=== PATIENT | male | born 1965 | race Caucasian/White ===

== ENCOUNTER 2021-06-16 12:32 | Emergency (ER) | payer BC ==
[2021-06-16] MEDS ORDERED: Sodium Chloride 0.9% 10 ML Syringe FLUSH PRN (13:49)
--- NOTE | 2021-06-16 13:51 | EDM.PDOC ---
ED HPI GENERAL MEDICAL PROBLEM - General Chief Complaint: Respiratory Problem Stated Complaint: CANT EAT/SLEEP/DIZZY/CHILLS/X 2 WEEKS Time Seen by Provider: 06/16/21 13:41 Source of Information: Reports: Patient, RN Notes Reviewed History Limitations: Reports: No Limitations - History of Present Illness INITIAL COMMENTS - FREE TEXT/NARRATIVE: Patient is a 56-year-old male who presents to the ER for evaluation of a multitude of symptoms. Patient notes for the last 2 weeks or so, he has been having issues with fevers, chills, nausea/vomiting/diarrhea. States that he does not have much of an appetite, when he does eat, go straight through him. He was able to keep some pudding down earlier this morning. He is not sure what his temperatures have been at home, but he notes that he has felt feverish. States that he is only at home with his , so he is not sure if he has been around anyone that is been sick that he is aware of. Patient has not previously had COVID-19, nor did he get the vaccinations. Primary care provider is Lesly Friedman. Patient states he is not taking any regular medications. Generalized Pain Score (Numeric/FACES): 5 - Related Data Allergies Allergy/AdvReac Type Severity Reaction Status Date / Time No Known Allergies Allergy Verified 06/16/21 13:17 Home Meds: Home Meds Ondansetron [Zofran ODT] 4 mg PO Q8H PRN #15 tab.dis 06/16/21 [Rx] Past Medical History - Past Health History Medical/Surgical History: Denies Medical/Surgical History Social & Family History - Tobacco Use Tobacco Use Status *Q: Current Every Day Tobacco User Years of Tobacco use: 5 Packs/Tins Daily: 0.5 - Caffeine Use Caffeine Use: Reports: Coffee, Soda - Recreational Drug Use Recreational Drug Use: No ED ROS GENERAL - Review of Systems Review Of Systems: Comprehensive ROS is negative, except as noted in HPI. ED EXAM, GENERAL - Physical Exam Exam: See Below Exam Limited By: No Limitations General Appearance: Alert, WD/WN, No Apparent Distress Respiratory/Chest: No Respiratory Distress, Lungs Clear, Normal Breath Sounds, No Accessory Muscle Use, Chest Non-Tender Cardiovascular: Normal Peripheral Pulses, Regular Rate, Rhythm, No Edema Peripheral Pulses: 2+: Radial (L), Radial (R) Extremities: Normal Inspection, Normal Capillary Refill Neurological: Alert, Oriented, Normal Cognition, No Motor/Sensory Deficits Psychiatric: Normal Affect, Normal Mood Skin Exam: Warm, Dry, Intact, Normal Color, No Rash Course - Vital Signs Last Recorded V/S: Last Vital Signs Temp 99.0 F 06/16/21 13:15 Pulse 79 06/16/21 13:15 Resp 18 06/16/21 13:15 BP 137/75 06/16/21 13:15 Pulse Ox 94 L 06/16/21 13:15 - Orders/Labs/Meds Orders: Active Orders 24 hr Category Date Time Status Peripheral IV Care [RC] . DIRECTED Care 06/16/21 13:49 Ordered Chest 1V Frontal [CR] Stat Exams 06/16/21 13:49 Ordered CULTURE URINE [MREF] Urgent Lab 06/16/21 14:50 Ordered Sodium Chloride 0.9% [Saline Flush] Med 06/16/21 13:49 Ordered 10 ml FLUSH ASDIRECTED PRN Peripheral IV Insertion Adult [OM.PC] Routine Oth 06/16/21 13:49 Ordered Medication Orders Sodium Chloride (Sodium Chloride 0.9% 10 Ml Syringe) 10 ml FLUSH ASDIRECTED PRN PRN Reason: Keep Vein Open Labs: Laboratory Tests 06/16/21 06/16/21 06/16/21 Range/Units 13:25 14:14 14:14 WBC 6.13 (4.23-9.07) K/mm3 RBC 4.76 (4.63-6.08) M/mm3 Hgb 14.6 (13.7-17.5) gm/dl Hct 42.6 (40.1-51.0) % MCV 89.5 (79.0-92.2) fl MCH 30.7 (25.7-32.2) pg MCHC 34.3 (32.2-35.5) g/dl RDW Std Deviation 44.2 H (35.1-43.9) fL Plt Count 244 (163-337) K/mm3 MPV 9.5 (9.4-12.3) fl Neut % (Auto) 63.6 (34.0-67.9) % Lymph % (Auto) 23.2 (21.8-53.1) % [place] % (Auto) 11.9 (5.3-12.2) % Eos % (Auto) 0 L (0.8-7.0) Baso % (Auto) 0.5 (0.1-1.2) % Neut # (Auto) 3.90 (1.78-5.38) K/mm3 Lymph # (Auto) 1.42 (1.32-3.57) K/mm3 [place] # (Auto) 0.73 (0.30-0.82) K/mm3 Eos # (Auto) 0.00 L (0.04-0.54) K/mm3 Baso # (Auto) 0.03 (0.01-0.08) K/mm3 Manual Slide Review Abnormal smear Sodium 139 (136-145) mEq/L Potassium 3.6 (3.5-5.1) mEq/L Chloride 101 (98-107) mEq/L Carbon Dioxide 31 (21-32) mEq/L Anion Gap 10.6 (5-15) BUN 14 (7-18) mg/dL Creatinine 1.0 (0.7-1.3) mg/dL Est Cr Clr Drug Dosing 77.90 mL/min Estimated GFR (MDRD) > 60 (>60) mL/min BUN/Creatinine Ratio 14.0 (14-18) Glucose 112 H (70-99) mg/dL Calcium 7.7 L (8.5-10.1) mg/dL Total Bilirubin 0.7 (0.2-1.0) mg/dL AST 73 H (15-37) U/L ALT 59 (16-63) U/L Alkaline Phosphatase 95 (46-116) U/L C-Reactive Protein 6.2 H* (<1.0) mg/dL Total Protein 6.4 (6.4-8.2) g/dl Albumin 3.0 L (3.4-5.0) g/dl Globulin 3.4 gm/dL Albumin/Globulin Ratio 0.9 L (1-2) Urine Color (Yellow) Urine Appearance (Clear) Urine pH (5.0-8.0) Ur Specific [place] (1.005-1.030) Urine Protein (Negative) Urine Glucose (UA) (Negative) Urine Ketones (Negative) Urine Occult Blood (Negative) Urine Nitrite (Negative) Urine Bilirubin (Negative) Urine Urobilinogen (0.2-1.0) Ur Leukocyte Esterase (Negative) Urine RBC (0-5) /hpf Urine WBC (0-5) /hpf Ur Squamous Epith Cells (0-5) /hpf Amorphous Sediment (NOT SEEN) /hpf Urine Bacteria (FEW) /hpf Urine Mucus (FEW) /hpf SARS-CoV-2 RNA (SUSANNE) Positive H (NEGATIVE) 06/16/21 Range/Units 14:25 WBC (4.23-9.07) K/mm3 RBC (4.63-6.08) M/mm3 Hgb (13.7-17.5) gm/dl Hct (40.1-51.0) % MCV (79.0-92.2) fl MCH (25.7-32.2) pg MCHC (32.2-35.5) g/dl RDW Std Deviation (35.1-43.9) fL Plt Count (163-337) K/mm3 MPV (9.4-12.3) fl Neut % (Auto) (34.0-67.9) % Lymph % (Auto) (21.8-53.1) % [place] % (Auto) (5.3-12.2) % Eos % (Auto) (0.8-7.0) Baso % (Auto) (0.1-1.2) % Neut # (Auto) (1.78-5.38) K/mm3 Lymph # (Auto) (1.32-3.57) K/mm3 [place] # (Auto) (0.30-0.82) K/mm3 Eos # (Auto) (0.04-0.54) K/mm3 Baso # (Auto) (0.01-0.08) K/mm3 Manual Slide Review Sodium (136-145) mEq/L Potassium (3.5-5.1) mEq/L Chloride (98-107) mEq/L Carbon Dioxide (21-32) mEq/L Anion Gap (5-15) BUN (7-18) mg/dL Creatinine (0.7-1.3) mg/dL Est Cr Clr Drug Dosing mL/min Estimated GFR (MDRD) (>60) mL/min BUN/Creatinine Ratio (14-18) Glucose (70-99) mg/dL Calcium (8.5-10.1) mg/dL Total Bilirubin (0.2-1.0) mg/dL AST (15-37) U/L ALT (16-63) U/L Alkaline Phosphatase (46-116) U/L C-Reactive Protein (<1.0) mg/dL Total Protein (6.4-8.2) g/dl Albumin (3.4-5.0) g/dl Globulin gm/dL Albumin/Globulin Ratio (1-2) Urine Color Yellow (Yellow) Urine Appearance Clear (Clear) Urine pH 6.5 (5.0-8.0) Ur Specific [place] 1.020 (1.005-1.030) Urine Protein Trace H (Negative) Urine Glucose (UA) Negative (Negative) Urine Ketones Trace H (Negative) Urine Occult Blood Negative (Negative) Urine Nitrite Negative (Negative) Urine Bilirubin Negative (Negative) Urine Urobilinogen 0.2 (0.2-1.0) Ur Leukocyte Esterase Negative (Negative) Urine RBC 0-5 (0-5) /hpf Urine WBC 0-5 (0-5) /hpf Ur Squamous Epith Cells Not seen (0-5) /hpf Amorphous Sediment Few H (NOT SEEN) /hpf Urine Bacteria Moderate H (FEW) /hpf Urine Mucus Few (FEW) /hpf SARS-CoV-2 RNA (SUSANNE) (NEGATIVE) Meds: Medications Generic Name Dose Route Start Last Admin Trade Name Freq PRN Reason Stop Dose Admin Sodium Chloride 10 ml 06/16/21 13:49 Sodium Chloride 0.9% 10 Ml Syringe FLUSH ASDIRECTED PRN Keep Vein Open - Re-Assessments/Exams Free Text/Narrative Re-Assessment/Exam: 06/16/21 13:53 Patient presents to the ER for his multitude of symptoms, Covid swab was taken at time of triage, we will go ahead and get a baseline x-ray, baseline labs, urinalysis for initial evaluation and management. 06/16/21 14:13 Labs are still pending at this time however chest x-ray has been performed, there does appear to be some patchy infiltrates over the right lung periphery. Official radiology read is still pending. Patient is not morbidly obese, does not appear to be overlying shadow. 06/16/21 14:20 Basic labs are still pending, but the COVID-19 screen did come back positive for today's purposes. At this time the patient has been symptomatic for roughly 2 weeks, and does not meet criteria for outpatient monoclonal antibody therapy, once labs have resulted for the most part, we will try to get the patient home with general recommendations, have him stick to more of a bland or clear liquid diet, get him some Zofran for the nausea, and have him maybe try some loperamide for his ongoing diarrhea. 06/16/21 14:52 The patient's laboratory evaluation is fairly unremarkable, CBC is unremarkable, CMP is unremarkable, CRP is elevated at 6.2. Urinalysis demonstrates no obvious sign of infection, there is no leukocyte esterase present, no nitrites present, 0-5 white blood cells, no squamous epithelial cells, but a moderate amount of bacteria noted. A urine culture will be sent for confirmation and or further investigation. However he is not having any dysuria or other urinary discomfort that would make me suspicious for anything worse going on. Departure - Departure Time of Disposition: 14:55 Disposition: Home, Self-Care 01 Condition: Good Clinical Impression: COVID-19 - Discharge Information *PRESCRIPTION DRUG MONITORING PROGRAM REVIEWED*: No *COPY OF PRESCRIPTION DRUG MONITORING REPORT IN PATIENT WILMER: No Prescriptions: Ondansetron [Zofran ODT] 4 mg PO Q8H PRN #15 tab.dis PRN Reason: Nausea Instructions: COVID-19 Frequently Asked Questions, 10 Things You Can Do to Manage Your COVID-19 Symptoms at Home - [facility] (04/26/2020) Referrals: Lesly Friedman NP [Primary Care Provider] - Forms: ED Department Discharge Additional Instructions: You were seen in the ER today for ongoing and/or worsening respiratory symptoms. COVID-19 screen did come back positive for today's purposes. Since you have been having symptoms for roughly 2 weeks, there should be no need to quarantine however please follow direction from the [facility] for ongoing management of this. The typical timeframe for quarantine is 10 days from beginning of symptom onset. Your chest x-ray showed some minimal signs of viral pneumonia at this time; consistent with COVID-19. Your oxygen levels were great at 93-94% on room air. Please try to increase your oral fluid intake, and eat multiple small meals throughout the day, to keep yourself healthy. You need to keep yourself nourished in order to fight off this disease. You can try a liquid diet like g atorade/powerade as well to get your electrolytes. You may take 500 mg Tylenol every hours 6 hours for pain/fever relief. Do not exceed 4000 mg Tylenol in a 24-hour time span. However, running a fever is your body's natural response to illness, and it allows the body to develop antibodies to disease, we are recommending trying to limit the use of Tylenol as much as possible to allow your body's natural immune response. You were given a monitor for your oxygen levels at home, you should place the monitor on your finger, and sit in a calm, quiet position for a few minutes and then record the number that is on the screen. If this consistently below 90% on room air without movement, this would be cause for concern to come back to the hospital for further management of your COVID-19 disease. For ongoing GI management, we will give you some tablets of Zofran for nausea, please use 1 tablet dissolvable under your tongue every 8 hours as needed for ongoing nausea management. This medication was electronically sent to the [place] [facility] [employer] [facility]. You should try some [id number] loperamide for the diarrhea purposes, please take as directed on the back of the box. Sepsis Event Note (ED) - Focused Exam Vital Signs: Vital Signs Temp Pulse Resp BP Pulse Ox 06/16/21 13:15 99.0 F 79 18 137/75 94 L - My Orders Last 24 Hours: My Active Orders 06/16/21 13:49 Peripheral IV Care [RC] . DIRECTED Chest 1V Frontal [CR] Stat Sodium Chloride 0.9% [Saline Flush] 10 ml FLUSH ASDIRECTED PRN Peripheral IV Insertion Adult [OM.PC] Routine 06/16/21 14:50 CULTURE URINE [MREF] Urgent - Assessment/Plan Last 24 Hours: My Active Orders 06/16/21 13:49 Peripheral IV Care [RC] . DIRECTED Chest 1V Frontal [CR] Stat Sodium Chloride 0.9% [Saline Flush] 10 ml FLUSH ASDIRECTED PRN Peripheral IV Insertion Adult [OM.PC] Routine 06/16/21 14:50 CULTURE URINE [MREF] Urgent
--- NOTE | 2021-06-16 16:02 | CR ---
Chest: Frontal view of the chest was obtained. Comparison: No prior chest imaging is available. Patchy areas of increased density are seen peripherally within both lungs, worse on the right side. Findings are compatible with COVID pneumonia. Heart size and mediastinum are within normal limits. No acute osseous abnormality is appreciated. Impression: 1. COVID pneumonia as described above. Diagnostic code #3
== END 2021-06-16 15:28 | disposition home or self-care (01) ==
LOC: JD.ED 12:32
DX: U07.1 COVID-19 (principal); Z72.0 Tobacco use
CPT/HCPCS: 36415; 71045; 71045-26; 80053; 81001; 85025; 86140; 87086; 99283; 99284-25; U0002

== ENCOUNTER 2021-06-19 17:41 | Inpatient (IN) | payer BC ==
--- NOTE | 2021-06-19 18:41 | EDM.PDOC ---
ED HPI GENERAL MEDICAL PROBLEM - General Chief Complaint: General Stated Complaint: COVID SOB Time Seen by Provider: 06/19/21 17:55 Source of Information: Reports: Patient History Limitations: Reports: No Limitations - History of Present Illness INITIAL COMMENTS - FREE TEXT/NARRATIVE: 56-year-old male presents the emergency department with complaints of Covid type symptoms. Patient states he developed generalized body aches, subjective fever, chills, nausea, diarrhea and shortness of breath approximately 2 weeks ago. He has not had much in the way of an appetite however he has been trying to drink plenty of fluids. He denies any urinary symptoms. He states he was tested for Covid 3 days ago and this was positive. States he went to [facility] today and they sent him over here for monoclonal antibody treatment. Patient denies any significant past medical history. He does not take any prescription medications. He does not smoke, he does not drink. States his primary care provider is Maryam Friedman. Treatments [employer]: Reports: Acetaminophen Generalized Pain Score (Numeric/FACES): 5 - Related Data Allergies Allergy/AdvReac Type Severity Reaction Status Date / Time No Known Allergies Allergy Verified 06/19/21 17:56 Home Meds: Home Meds Ondansetron [Zofran ODT] 4 mg PO Q8H PRN #15 tab.dis 06/16/21 [Rx] Past Medical History - Past Health History Medical/Surgical History: Denies Medical/Surgical History HEENT History: Reports: None Cardiovascular History: Reports: None Respiratory History: Reports: None Gastrointestinal History: Reports: None Genitourinary History: Reports: None Musculoskeletal History: Reports: None Neurological History: Reports: None Psychiatric History: Reports: None Endocrine/Metabolic History: Reports: None Hematologic History: Reports: None Immunologic History: Reports: None Oncologic (Cancer) History: Reports: None Dermatologic History: Reports: None - Infectious Disease History Infectious Disease History: Reports: Chicken Pox, Measles, Mumps, Novel Coronavi khalida - Past Surgical History HEENT Surgical History: Reports: Oral Surgery Social & Family History - Family History Family Medical History: No Pertinent Family History - Tobacco Use Tobacco Use Status *Q: Former Tobacco User Used Tobacco, but Quit: Yes Month/Year Tobacco Last Used: 10/2004 - Caffeine Use Caffeine Use: Reports: Coffee - Recreational Drug Use Recreational Drug Use: No ED ROS GENERAL - Review of Systems Review Of Systems: Comprehensive ROS is negative, except as noted in HPI. ED EXAM, GENERAL - Physical Exam Exam: See Below Exam Limited By: No Limitations General Appearance: Alert, WD/WN, No Apparent Distress Ears: Normal External Exam, Hearing Grossly Normal Nose: Normal Inspection Throat/Mouth: Normal Inspection, Normal Lips, Normal Voice, No Airway Compromise Head: Atraumatic Neck: Normal Inspection, Supple Respiratory/Chest: No Respiratory Distress, No Accessory Muscle Use, Chest Non- Tender, Crackles (Right middle and lower lobe). No: Lungs Clear, Normal Breath Sounds Cardiovascular: Normal Peripheral Pulses, Regular Rate, Rhythm, No Edema, No Murmur Peripheral Pulses: 2+: Radial (L), Radial (R) GI/Abdominal: Normal Bowel Sounds, Soft, Non-Tender, No Distention (Male) Exam: Deferred Rectal (Males) Exam: Deferred Back Exam: Normal Inspection Extremities: Normal Inspection Neurological: Alert, Oriented, Normal Cognition Psychiatric: Normal Affect, Normal Mood Skin Exam: Warm, Dry, Intact, Normal Color, No Rash Lymphatic: No Adenopathy #1 Interpretation EKG Date: 06/19/21 Time: 18:43 Rhythm: NSR Rate (Beats/Min): 65 [place]: Normal P-Wave: Present QRS: Normal ST-T: Normal QT: Normal Comparison: NA - No Prior EKG EKG Interpretation Comments: Per Dr. Hanley interpretation: Sinus rhythm at 65 bpm; borderline T abnormalities, inferior leads Course - Vital Signs Text/Narrative:: As stated above, the patient is Covid positive and presents with Covid symptoms. Was directed to come to the ER from [facility] for monoclonal antibody treatment however at this time upon initial assessment, patient does not qualify for this. O2 saturations are 94% on room air. Patient does have crackles noted to the right middle and lower lobe. I have ordered labs to include a CBC, CMP, magnesium, C-reactive protein, D-dimer, PT/INR, PTT, troponin, ferritin, LDH, chest x-ray and an EKG. Last Recorded V/S: Last Vital Signs Temp 98.0 F 06/19/21 18:01 Pulse 73 06/19/21 18:01 Resp 18 06/19/21 18:01 BP 125/88 06/19/21 18:01 Pulse Ox 90 L 06/19/21 18:01 - Orders/Labs/Meds Orders: Active Orders 24 hr Category Date Time Status UA RFX NAT AND CULT IF INDIC [URIN] Stat Lab 06/19/21 18:23 Ordered Azithromycin [Zithromax] 500 mg Med 06/19/21 20:00 Active Sodium Chloride 0.9% [Normal Saline (AdvBag)] 250 ml IV Q24H cefTRIAXone [Rocephin] 2 gm Med 06/19/21 20:00 Active Sodium Chloride 0.9% [Normal Saline] 100 ml IV Q24H Medication Orders Azithromycin 500 mg/ Sodium (Chloride) 250 mls @ 250 mls/hr IV Q24H JAYE Ceftriaxone Sodium 2 gm/ (Sodium Chloride) 100 mls @ 200 mls/hr IV Q24H JAYE Last Admin: 06/19/21 20:28 Dose: 200 mls/hr Documented by: [email or web address] Labs: Laboratory Tests 06/19/21 06/19/21 06/19/21 Range/Units 18:36 18:36 18:36 WBC 7.78 (4.23-9.07) K/mm3 RBC 4.79 (4.63-6.08) M/mm3 Hgb 14.6 (13.7-17.5) gm/dl Hct 43.1 (40.1-51.0) % MCV 90.0 (79.0-92.2) fl MCH 30.5 (25.7-32.2) pg MCHC 33.9 (32.2-35.5) g/dl RDW Std Deviation 43.6 (35.1-43.9) fL Plt Count 412 H D (163-337) K/mm3 MPV 9.2 L (9.4-12.3) fl Neut % (Auto) 56.8 (34.0-67.9) % Lymph % (Auto) 25.8 (21.8-53.1) % Person % (Auto) 13.1 H (5.3-12.2) % Eos % (Auto) 2.1 (0.8-7.0) Baso % (Auto) 1.0 (0.1-1.2) % Neut # (Auto) 4.42 (1.78-5.38) K/mm3 Lymph # (Auto) 2.01 (1.32-3.57) K/mm3 Person # (Auto) 1.02 H (0.30-0.82) K/mm3 Eos # (Auto) 0.16 (0.04-0.54) K/mm3 Baso # (Auto) 0.08 (0.01-0.08) K/mm3 Manual Slide Review PT 12.3 H (9.7-12.0) SECONDS INR 1.15 APTT 31.3 (21.7-31.4) SECONDS D-Dimer, Quantitative 0.43 (0.19-0.50) mg/L Sodium 142 (136-145) mEq/L Potassium 3.4 L (3.5-5.1) mEq/L Chloride 104 (98-107) mEq/L Carbon Dioxide 31 (21-32) mEq/L Anion Gap 10.4 (5-15) BUN 10 (7-18) mg/dL Creatinine 1.1 (0.7-1.3) mg/dL Est Cr Clr Drug Dosing 70.82 mL/min Estimated GFR (MDRD) > 60 (>60) mL/min BUN/Creatinine Ratio 9.1 L (14-18) Glucose 94 (70-99) mg/dL Calcium 8.3 L (8.5-10.1) mg/dL Magnesium 2.4 (1.8-2.4) mg/dL Ferritin (26-388) ng/ml Total Bilirubin 0.6 (0.2-1.0) mg/dL AST 83 H (15-37) U/L ALT 87 H (16-63) U/L Alkaline Phosphatase 127 H (46-116) U/L Lactate Dehydrogenase 462 H (85-227) U/L Troponin I < 0.017 (0.00-0.056) ng/mL C-Reactive Protein 2.8 H* (<1.0) mg/dL Total Protein 6.7 (6.4-8.2) g/dl Albumin 3.1 L (3.4-5.0) g/dl Globulin 3.6 gm/dL Albumin/Globulin Ratio 0.9 L (1-2) 06/19/ Range/Units 18:36 WBC (4.23-9.07) K/mm3 RBC (4.63-6.08) M/mm3 Hgb (13.7-17.5) gm/dl Hct (40.1-51.0) % MCV (79.0-92.2) fl MCH (25.7-32.2) pg MCHC (32.2-35.5) g/dl RDW Std Deviation (35.1-43.9) fL Plt Count (163-337) K/mm3 MPV (9.4-12.3) fl Neut % (Auto) (34.0-67.9) % Lymph % (Auto) (21.8-53.1) % Person % (Auto) (5.3-12.2) % Eos % (Auto) (0.8-7.0) Baso % (Auto) (0.1-1.2) % Neut # (Auto) (1.78-5.38) K/mm3 Lymph # (Auto) (1.32-3.57) K/mm3 Person # (Auto) (0.30-0.82) K/mm3 Eos # (Auto) (0.04-0.54) K/mm3 Baso # (Auto) (0.01-0.08) K/mm3 Manual Slide Review PT (9.7-12.0) SECONDS INR APTT (21.7-31.4) SECONDS D-Dimer, Quantitative (0.19-0.50) mg/L Sodium (136-145) mEq/L Potassium (3.5-5.1) mEq/L Chloride (98-107) mEq/L Carbon Dioxide (21-32) mEq/L Anion Gap (5-15) BUN (7-18) mg/dL Creatinine (0.7-1.3) mg/dL Est Cr Clr Drug Dosing mL/min Estimated GFR (MDRD) (>60) mL/min BUN/Creatinine Ratio (14-18) Glucose (70-99) mg/dL Calcium (8.5-10.1) mg/dL Magnesium (1.8-2.4) mg/dL Ferritin 3068 H (26-388) ng/ml Total Bilirubin (0.2-1.0) mg/dL AST (15-37) U/L ALT (16-63) U/L Alkaline Phosphatase (46-116) U/L Lactate Dehydrogenase (85-227) U/L Troponin I (0.00-0.056) ng/mL C-Reactive Protein (<1.0) mg/dL Total Protein (6.4-8.2) g/dl Albumin (3.4-5.0) g/dl Globulin gm/dL Albumin/Globulin Ratio (1-2) Meds: Medications Generic Name Dose Route Start Last Admin Trade Name Freq PRN Reason Stop Dose Admin Azithromycin 500 mg/ Sodium 250 mls @ 250 mls/hr 06/19/21 20:00 Chloride IV Q24H JAYE Ceftriaxone Sodium 2 gm/ 100 mls @ 200 mls/hr 06/19/21 20:00 06/19/21 20:28 Sodium Chloride IV 200 mls/hr Q24H JAYE Administration Discontinued Medications Generic Name Dose Route Start Last Admin Trade Name Freq PRN Reason Stop Dose Admin Dexamethasone 6 mg 06/19/21 19:49 06/19/21 20:28 Dexamethasone 4 Mg Tab PO 06/19/21 19:50 6 mg NOW STA Administration Remdesivir 200 mg/ Sodium 250 mls @ 250 mls/hr 06/19/21 19:47 Chloride IV 06/19/21 20:46 ONETIME ONE - Re-Assessments/Exams Free Text/Narrative Re-Assessment/Exam: 06/19/21 19:00 Nursing staff notifies me the patient's O2 sats dropped down to 74% on room air. They state they put him on oxygen at 4 L per nasal cannula and sats are currently at 96%. 06/19/21 19:24 Chest xray reveals areas of infiltrates noted to the right middle and lower lobes as well as the left lower lobe. 06/19/21 19:30 Feel this patient does need to be admitted to the hospital so I have phoned Dr. Bolton, the hospitalist and he has agreed to admit the patient. He is requesting that I start the patient on remdesivir, Rocephin, Zithromax and dexamethasone. I will write bridge orders for this patient. 06/19/21 19:47 Hematology reveals a WBC of 7.78, hemoglobin 14.6, hematocrit 43.1, platelet count 412 Coagulation reveals a pro time of 12.3, INR 1.15, PTT 31.3, D-dimer is 0.43 Chemistry reveals a sodium of 142, potassium 3.4, chloride 104, carbon dioxide 31, anion gap 10.4, BUN 10, creatinine 1.1, glucose 94, calcium 8.3, magnesium 2.4, ferritin 3068, total bilirubin 0.6, AST 83, ALT 87, alk phos 127, LDH 462, troponin less than 0.017, C-reactive protein 2.8, albumin 3.1 06/19/21 19:53 Radiologist impression frontal view of the chest: 1. Worsening increased density within both sides of the chest. Findings most likely due to worsening Covid pneumonia. Departure - Departure Time of Disposition: 21:13 Disposition: Admitted As Inpatient 66 Condition: Good Clinical Impression: Hypoxia, Pneumonia due to COVID-19 virus - Discharge Information Sepsis Event Note (ED) - Evaluation Sepsis Screening Result: No Definite Risk - Focused Exam Vital Signs: Vital Signs Temp Pulse Resp BP Pulse Ox 06/19/21 18:01 98.0 F 73 18 125/88 90 L 06/19/21 17:59 98.0 F 73 18 142/85 H 94 L - My Orders Last 24 Hours: My Active Orders 06/19/21 18:23 UA RFX NAT AND CULT IF INDIC [URIN] Stat 06/19/21 20:00 Azithromycin [Zithromax] 500 mg Sodium Chloride 0.9% [Normal Saline (AdvBag)] 250 ml IV Q24H cefTRIAXone [Rocephin] 2 gm Sodium Chloride 0.9% [Normal Saline] 100 ml IV Q24H - Assessment/Plan Last 24 Hours: My Active Orders 06/19/21 18:23 UA RFX NAT AND CULT IF INDIC [URIN] Stat 06/19/21 20:00 Azithromycin [Zithromax] 500 mg Sodium Chloride 0.9% [Normal Saline (AdvBag)] 250 ml IV Q24H cefTRIAXone [Rocephin] 2 gm Sodium Chloride 0.9% [Normal Saline] 100 ml IV Q24H
--- NOTE | 2021-06-19 19:43 | CR ---
Chest: Frontal view of the chest was obtained. Comparison: Prior chest x-ray of 06/16/21. Increasing density is seen within the left upper and left lower lung from prior chest x-ray. Slight increasing density is also noted within the right lung from prior study. Heart size and mediastinum are within normal limits. No discrete osseous abnormality is appreciated. Impression: 1. Worsening increased density within both sides of the chest. Findings most likely due to worsening COVID pneumonia. Diagnostic code #3
[2021-06-19] MEDS ORDERED: REMDESIVIR 200 MG in Sodium Chloride 0.9% 250 ML IV ONE ×2 (19:47→23:30)
[2021-06-19] MEDS ORDERED: Dexamethasone 4 MG Tab PO STA (19:49)
[2021-06-19] MEDS ORDERED: Azithromycin 500 MG in Sodium Chloride 0.9% 250 ML IV SCH (20:00)
[2021-06-19] MEDS: cefTRIAXone 2 GM in Sodium Chloride 0.9% 100 ML IV SCH (20:28)
[2021-06-20] MEDS: Azithromycin 500 MG in Sodium Chloride 0.9% 250 ML IV SCH ×2 (00:05→23:28)
--- NOTE | 2021-06-20 06:48 | PCM.HP.2 ---
H&P History of Present Illness - General Date of Service: 06/20/21 Admit Problem/Dx: Admission Diagnosis/Problem Admission Diagnosis/Problem Hypoxia, COVID-19 Source of Information: Patient History Limitations: Reports: No Limitations - History of Present Illness Initial Comments - Free Text/Narative: The patient is a 56-year-old gentleman who had presented to the emergency department on June 19, 2021 after having been found to be positive for COVID- 19. The patient was admitted secondary to hypoxia. The patient had been having some shortness of breath. The patient also had been in the emergency department on June 16, 2021 where he had been tested positive for COVID-19. The patient does not normally seek health care. The patient reports that he started feeling sick about 2 weeks ago and had been treating himself at home with flu medication that he had [id number]. The patient has had a cough associated with this process as well as some nausea and diarrhea. The patient says that he has not had any direct fever or chills however he has felt hot and sweaty. The patient has had no specific aggravating or relieving factors. The patient has been t rying to wait out the symptoms. He has been healthy otherwise. The patient does not take any medications on a regular basis. No tobacco use. He is exposed to secondhand smoke. Onset of Symptoms: Reports: Gradual Duration of Symptoms: Reports: Week(s):, Constant Location: Reports: Chest Severity: Mild Improves with: Reports: None Worsens with: Reports: None Context: Denies: Sick Contact Associated Symptoms: Reports: Cough, Fever/Chills Generalized Pain Score (Numeric/FACES): 5 - Related Data Allergies/Adverse Reactions: Allergies Allergy/AdvReac Type Severity Reaction Status Date / Time No Known Allergies Allergy Verified 06/19/21 17:56 Home Medications: Home Meds Ondansetron [Zofran ODT] 4 mg PO Q8H PRN #15 tab.dis 06/16/21 [Rx] Past Medical History - Past Health History Medical/Surgical History: Denies Medical/Surgical History HEENT History: Reports: None Cardiovascular History: Reports: None Respiratory History: Reports: None Gastrointestinal History: Reports: None Genitourinary History: Reports: None Musculoskeletal History: Reports: None Neurological History: Reports: None Psychiatric History: Reports: None Endocrine/Metabolic History: Reports: None Hematologic History: Reports: None Immunologic History: Reports: None Oncologic (Cancer) History: Reports: None Dermatologic History: Reports: None - Infectious Disease History Infectious Disease History: Reports: Chicken Pox, Measles, Mumps, Novel Coronavirus - Past Surgical History HEENT Surgical History: Reports: Oral Surgery Social & Family History - Family History Family Medical History: No Pertinent Family History - Tobacco Use Tobacco Use Status *Q: Former Tobacco User Used Tobacco, but Quit: Yes Month/Year Tobacco Last Used: 2003 Second Hand Smoke Exposure: Yes - Caffeine Use Caffeine Use: Reports: Coffee, Soda - Alcohol Use Alcohol Use History: No - Recreational Drug Use Recreational Drug Use: No - Living Situation & Occupation Living situation: Reports: , with Spouse Occupation: Employed H&P Review of Systems - Review of Systems: Review Of Systems: See Below General: Reports: Fever, Chills, Fatigue HEENT: Reports: No Symptoms Pulmonary: Reports: Shortness of Breath, Cough Cardiovascular: Reports: No Symptoms Gastrointestinal: Reports: Diarrhea, Nausea. Denies: Abdominal Pain Genitourinary: Reports: No Symptoms Musculoskeletal: Reports: No Symptoms Skin: Reports: No Symptoms Psychiatric: Reports: No Symptoms Neurological: Reports: No Symptoms Hematologic/Lymphatic: Reports: No Symptoms Immunologic: Reports: No Symptoms Exam - Exam Exam: See Below - Vital Signs Vital Signs: Last Vital Signs Temp 37.0 C 06/20/21 04:06 Pulse 74 06/20/21 04:06 Resp 20 06/20/21 04:06 BP 126/98 H 06/20/21 04:06 Pulse Ox 94 L 06/19/21 21:11 Weight: 86.818 kg - Exam Quality Assessment: DVT Prophylaxis. No: Supplemental Oxygen General: Alert, Oriented, Cooperative HEENT: Conjunctiva Clear, EACs Clear, EOMI, Hearing Intact, Mucosa Moist & [place], PERRLA Neck: Supple, Trachea Midline Lungs: Clear to Auscultation, Normal Respiratory Effort Cardiovascular: Regular Rate, Regular Rhythm GI/Abdominal Exam: Normal Bowel Sounds, Soft, Non-Tender, No Distention. No: Guarding, Rigid, Rebound (Male) Exam: Deferred Rectal (Males) Exam: Deferred Back Exam: Normal Inspection, Full Range of Motion Extremities: Normal Inspection, Normal Range of Motion, No Pedal Edema Skin: Warm, Dry, Intact Neurological: Cranial Nerves Intact, Strength Equal Bilateral, Normal Gait, Normal Speech, Normal Tone Neuro Extensive - Mental Status: Alert, Oriented x3, Normal Cognition, Memory Intact Neuro Extensive - Motor, Sensory, Reflexes: CN II-XII Intact Psychiatric: Alert, Normal Affect, Normal Mood - Patient Data Lab Results Last 24 hrs: Laboratory Results - last 24 hr 06/19/21 06/19/21 06/19/21 Range/Units 18:36 18:36 18:36 WBC 7.78 (4.23-9.07) K/mm3 RBC 4.79 (4.63-6.08) M/mm3 Hgb 14.6 (13.7-17.5) gm/dl Hct 43.1 (40.1-51.0) % MCV 90.0 (79.0-92.2) fl MCH 30.5 (25.7-32.2) pg MCHC 33.9 (32.2-35.5) g/dl RDW Std Deviation 43.6 (35.1-43.9) fL Plt Count 412 H D (163-337) K/mm3 MPV 9.2 L (9.4-12.3) fl Neut % (Auto) 56.8 (34.0-67.9) % Lymph % (Auto) 25.8 (21.8-53.1) % Park % (Auto) 13.1 H (5.3-12.2) % Eos % (Auto) 2.1 (0.8-7.0) Baso % (Auto) 1.0 (0.1-1.2) % Neut # (Auto) 4.42 (1.78-5.38) K/mm3 Lymph # (Auto) 2.01 (1.32-3.57) K/mm3 Park # (Auto) 1.02 H (0.30-0.82) K/mm3 Eos # (Auto) 0.16 (0.04-0.54) K/mm3 Baso # (Auto) 0.08 (0.01-0.08) K/mm3 Manual Slide Review PT 12.3 H (9.7-12.0) SECONDS INR 1.15 APTT 31.3 (21.7-31.4) SECONDS D-Dimer, Quantitative 0.43 (0.19-0.50) mg/L Sodium 142 (136-145) mEq/L Potassium 3.4 L (3.5-5.1) mEq/L Chloride 104 (98-107) mEq/L Carbon Dioxide 31 (21-32) mEq/L Anion Gap 10.4 (5-15) BUN 10 (7-18) mg/dL Creatinine 1.1 (0.7-1.3) mg/dL Est Cr Clr Drug Dosing 70.82 mL/min Estimated GFR (MDRD) > 60 (>60) mL/min BUN/Creatinine Ratio 9.1 L (14-18) Glucose 94 (70-99) mg/dL Calcium 8.3 L (8.5-10.1) mg/dL Magnesium 2.4 (1.8-2.4) mg/dL Ferritin (26-388) ng/ml Total Bilirubin 0.6 (0.2-1.0) mg/dL AST 83 H (15-37) U/L ALT 87 H (16-63) U/L Alkaline Phosphatase 127 H (46-116) U/L Lactate Dehydrogenase 462 H (85-227) U/L Troponin I < 0.017 (0.00-0.056) ng/mL C-Reactive Protein 2.8 H* (<1.0) mg/dL Total Protein 6.7 (6.4-8.2) g/dl Albumin 3.1 L (3.4-5.0) g/dl Globulin 3.6 gm/dL Albumin/Globulin Ratio 0.9 L (1-2) Urine Color (Yellow) Urine Appearance (Clear) Urine pH (5.0-8.0) Ur Specific Simpson (1.005-1.030) Urine Protein (Negative) Urine Glucose (UA) (Negative) Urine Ketones (Negative) Urine Occult Blood (Negative) Urine Nitrite (Negative) Urine Bilirubin (Negative) Urine Urobilinogen (0.2-1.0) Ur Leukocyte Esterase (Negative) 06/19/21 06/19/21 06/20/21 Range/Units 18:36 18:36 04:10 WBC (4.23-9.07) K/mm3 RBC (4.63-6.08) M/mm3 Hgb (13.7-17.5) gm/dl Hct (40.1-51.0) % MCV (79.0-92.2) fl MCH (25.7-32.2) pg MCHC (32.2-35.5) g/dl RDW Std Deviation (35.1-43.9) fL Plt Count (163-337) K/mm3 MPV (9.4-12.3) fl Neut % (Auto) (34.0-67.9) % Lymph % (Auto) (21.8-53.1) % Park % (Auto) (5.3-12.2) % Eos % (Auto) (0.8-7.0) Baso % (Auto) (0.1-1.2) % Neut # (Auto) (1.78-5.38) K/mm3 Lymph # (Auto) (1.32-3.57) K/mm3 Park # (Auto) (0.30-0.82) K/mm3 Eos # (Auto) (0.04-0.54) K/mm3 Baso # (Auto) (0.01-0.08) K/mm3 Manual Slide Review PT (9.7-12.0) SECONDS INR APTT (21.7-31.4) SECONDS D-Dimer, Quantitative (0.19-0.50) mg/L Sodium (136-145) mEq/L Potassium (3.5-5.1) mEq/L Chloride (98-107) mEq/L Carbon Dioxide (21-32) mEq/L Anion Gap (5-15) BUN (7-18) mg/dL Creatinine (0.7-1.3) mg/dL Est Cr Clr Drug Dosing mL/min Estimated GFR (MDRD) (>60) mL/min BUN/Creatinine Ratio (14-18) Glucose (70-99) mg/dL Calcium (8.5-10.1) mg/dL Magnesium (1.8-2.4) mg/dL Ferritin 3068 H (26-388) ng/ml Total Bilirubin (0.2-1.0) mg/dL AST 64 H (15-37) U/L ALT 84 H (16-63) U/L Alkaline Phosphatase 122 H (46-116) U/L Lactate Dehydrogenase (85-227) U/L Troponin I (0.00-0.056) ng/mL C-Reactive Protein (<1.0) mg/dL Total Protein 6.5 (6.4-8.2) g/dl Albumin 2.7 L (3.4-5.0) g/dl Globulin 3.8 gm/dL Albumin/Globulin Ratio 0.7 L (1-2) Urine Color Yellow (Yellow) Urine Appearance Clear (Clear) Urine pH 7.0 (5.0-8.0) Ur Specific Simpson 1.020 (1.005-1.030) Urine Protein Negative (Negative) Urine Glucose (UA) Negative (Negative) Urine Ketones Negative (Negative) Urine Occult Blood Negative (Negative) Urine Nitrite Negative (Negative) Urine Bilirubin Negative (Negative) Urine Urobilinogen 0.2 (0.2-1.0) Ur Leukocyte Esterase Negative (Negative) Result Diagrams: 06/19/21 18:36 06/19/21 18:36 Sepsis Event Note - Evaluation Sepsis Screening Result: No Definite Risk - Focused Exam Vital Signs: Vital Signs Temp Pulse Pulse Resp BP BP Pulse Ox 06/20/21 04:06 37.0 C 74 20 126/98 H 06/20/21 01:14 37.1 C 75 20 119/84 06/19/21 21:11 36.9 C 73 18 127/85 94 L 06/19/21 21:00 70 16 128/82 96 - Problem List (1) Acute respiratory failure SNOMED Code(s): 22186782 ICD Code: J96.00 - ACUTE RESPIRATORY FAILURE, UNSP W HYPOXIA OR HYPERCAPNIA Status: Resolved Current Visit: Yes Qualifiers: Respiratory failure complication: hypoxia Qualified Code(s): J96.01 - Acute respiratory failure with hypoxia (2) Pneumonia due to COVID-19 virus SNOMED Code(s): 609609191487106557 ICD Code: U07.1 - COVID-19; J12.82 - PNEUMONIA DUE TO CORONAVIRUS DISEASE 2019 Status: Acute Priority: High Current Visit: Yes Problem List Initiated/Reviewed/Updated: Yes Orders Last 24hrs: Active Orders 24 hr Category Date Time Status Admission Status [Patient Status] [ADT] Routine ADT 06/19/21 19:51 Active Cardiac Monitoring [RC] . DIRECTED Care 06/19/21 19:51 Active IS (RT) [RT Incentive Spirometry] [RC] Q1HWA Care 06/20/21 01:36 Active Oxygen Therapy Adult [Oxygen Therapy] [RC] ASDIRECTED Care 06/20/21 01:38 Active Up ad Elvia [RC] BID Care 06/20/21 01:44 Active Regular Diet [DIET] Diet 06/20/21 Breakfast Active HEPATIC FUNCTION PANEL,[facility] [CHEM] DAILY Lab 06/21/21 01:30 Ordered HEPATIC FUNCTION PANEL,[facility] [CHEM] DAILY Lab 06/22/21 01:30 Ordered HEPATIC FUNCTION PANEL,[facility] [CHEM] DAILY Lab 06/23/21 01:30 Ordered HEPATIC FUNCTION PANEL,[facility] [CHEM] DAILY Lab 06/24/21 01:30 Ordered HEPATIC FUNCTION PANEL,[facility] [CHEM] Stat Lab 06/20/21 01:29 Results Azithromycin [Zithromax] 500 mg Med 06/19/21 23:30 Active Sodium Chloride 0.9% [Normal Saline (AdvBag)] 250 ml IV Q24H Remdesivir 100 mg Med 06/21/21 00:00 Active Sodium Chloride 0.9% [Normal Saline] 100 ml IV Q24H cefTRIAXone [Rocephin] 2 gm Med 06/19/21 20:00 Active Sodium Chloride 0.9% [Normal Saline] 100 ml IV Q24H dexAMETHasone Med 06/20/21 09:00 Active 6 mg PO DAILY Pulse Oximetry Continuous Monitoring [OM.PC] Routine Oth 06/20/21 03:11 Active RT Flutter Valve Therapy [RT Acapella] [RESPCARE] Oth 06/20/21 09:00 Active Routine Code Status [Resuscitation Status] Routine Resus Stat 06/20/21 01:43 Ordered Medication Orders Dexamethasone (Dexamethasone 4 Mg Tab) 6 mg PO DAILY [facility] Ceftriaxone Sodium 2 gm/ (Sodium Chloride) 100 mls @ 200 mls/hr IV Q24H [facility] Last Admin: 06/19/21 20:28 Dose: 200 mls/hr [facility] Azith[facility] 500 mg/ Sodium (Chloride) 250 mls @ 250 mls/hr IV Q24H [facility] Last Admin: 06/20/21 00:05 Dose: Not Given Documented by: MUITDAM Remdesivir 100 mg/ Sodium (Chloride) 100 mls @ 100 mls/hr IV Q24H [facility] Stop: 06/24/21 00:59 Assessment/Plan Comment:: The patient is a 56-year-old gentleman who had been admitted initially secondary to hypoxia associated with COVID-19 pneumonia. The patient had a chest x-ray yesterday which showed worsening increased density both sides of chest findings most likely due to worsening Covid pneumonia. The patient has been started on remdesivir although the patient is somewhat outside the window of time for this. The patient also has been started on ceftriaxone 2 g IV on a daily basis. He is also on dexamethasone 6 mg p.o. daily. Patient will also have DVT prophylaxis with the use of Lovenox 40 mg subcutaneous daily. The patient will have a regular diet as tolerated. The patient has had mild elevations of his ALT and AST and repeat laboratory studies have been ordered for this. For now this will be monitored. The patient will be needing to follow-up with a primary care physician for this elevation of his ALT and AST. The patient is currently not on oxygen and has been able to maintain his oxygen saturations around 92%. He will be monitored for his oxygen use and started on oxygen as necessary. Patient also has been instructed on the use of the Acapella and incentive spirometer. The patient might be appropriate for discharge in 1 day depending upon physical condition as he is outside the window for the remdesivir. - Mortality Measure Prognosis:: Good
[2021-06-20] MEDS ORDERED: Enoxaparin 40 MG/0.4 ML Syringe SUBCUT SCH (07:00)
[2021-06-20] MEDS: Enoxaparin 40 MG/0.4 ML Syringe SUBCUT SCH (09:12)
[2021-06-20] MEDS: Dexamethasone 4 MG Tab PO SCH (09:13)
[2021-06-20] MEDS: cefTRIAXone 2 GM in Sodium Chloride 0.9% 100 ML IV SCH (21:51)
[2021-06-20] MEDS ORDERED: REMDESIVIR 100 MG in Sodium Chloride 0.9% 100 ML IV SCH (23:00)
[2021-06-21] MEDS: Dexamethasone 4 MG Tab PO SCH (07:58)
[2021-06-21] MEDS: Enoxaparin 40 MG/0.4 ML Syringe SUBCUT SCH (07:59)
--- NOTE | 2021-06-21 10:57 | PCM.DCSUM1 ---
Discharge Summary - Hospital Course HPI Initial Comments: The patient was admitted secondary to hypoxia from COVID-19. Diagnosis: Stroke: No - Discharge Data Discharge Date: 06/21/21 Discharge Disposition: Home, Self-Care 01 Condition: Good - Referral to Home Health Primary Care Physician: Lesly Friedman NP - Discharge Diagnosis/Problem(s) (1) Acute respiratory failure SNOMED Code(s): 37464441 ICD Code: J96.00 - ACUTE RESPIRATORY FAILURE, UNSP W HYPOXIA OR HYPERCAPNIA Status: Resolved Qualifiers: Respiratory failure complication: hypoxia Qualified Code(s): J96.01 - Acute respiratory failure with hypoxia (2) Pneumonia due to COVID-19 virus SNOMED Code(s): 785062546720700882 ICD Code: U07.1 - COVID-19; J12.82 - PNEUMONIA DUE TO CORONAVIRUS DISEASE 2018 Status: Acute Priority: High - Patient Summary/Data Hospital Course: The patient is a 56-year-old gentleman who had presented to the emergency department on June 19, 2021 after having been found to be positive for COVID- 19. The patient was admitted secondary to hypoxia. The patient had been having some shortness of breath. The patient also had been in the emergency department on June 16, 2021 where he had been tested positive for COVID-19. The patient does not normally seek health care. The patient reports that he started feeling sick about 2 weeks ago and had been treating himself at home with flu medication that he had [id number]. The patient has had a cough associated with this process as well as some nausea and diarrhea. The patient reports that he has been dealing with the COVID-19 symptoms for the past 3 weeks. Technically the patient is outside the window for remdesivir. He has been on room air and maintaining his oxygen saturations.The patient has been doing well on room air. He has been discharged on a azithromycin 500 mg p.o. daily for 5 days. The patient also has been given a prescription for dexamethasone 6 mg p.o. daily for 8 days. The patient says that he feels like he can go home. He is to follow-up with his primary care physician. The patient has been having the diet as tolerated and is recommended to continue with this. He also has been recommended to continue with his physical activity as tolerated. The patient has been discharged from acute hospitalization with the recommendations listed above. - Patient Instructions Diet: Heart Healthy Diet Activity: As Tolerated Notify Provider of: Fever, Increased Pain, Swelling and Redness - Discharge Plan *PRESCRIPTION DRUG MONITORING PROGRAM REVIEWED*: No *COPY OF PRESCRIPTION DRUG MONITORING REPORT IN PATIENT WILMER: No Prescriptions/Med Rec: Azithromycin 500 mg PO DAILY #5 tablet dexAMETHasone [Dexamethasone] 6 mg PO DAILY #8 tablet Home Medications: Home Meds Azithromycin 500 mg PO DAILY #5 tablet 06/21/21 [Rx] dexAMETHasone [Dexamethasone] 6 mg PO DAILY #8 tablet 06/21/21 [Rx] Oxygen Therapy Mode: Room Air Patient Handouts: COVID-19 Frequently Asked Questions, 10 Things You Can Do to Manage Your COVID-19 Symptoms at Home - CDC (04/26/2020), Sepsis, Self Care, Adult Referrals: Lesly Friedman NP [Primary Care Provider] - 06/29/21 1:00 pm (This is the appointment time, please arrive 15 minutes prior to the appointment to register.) - Discharge Summary/Plan Comment DC Time >30 min.: Yes Total # of Minutes for Discharge Time: 40 - General Info Date of Service: 06/21/21 Admission Dx/Problem (Free Text: Admission Diagnosis/Problem Admission Diagnosis/Problem Hypoxia, COVID-19 Subjective Update: The patient says that he feels well today. His breathing has improved. He has been on room air. The patient feels like he could go home. Functional Status: Reports: Pain Controlled, Tolerating Diet - Review of Systems General: Reports: No Symptoms HEENT: Reports: No Symptoms Pulmonary: Reports: No Symptoms Cardiovascular: Reports: No Symptoms Gastrointestinal: Reports: No Symptoms Genitourinary: Reports: No Symptoms Musculoskeletal: Reports: No Symptoms Skin: Reports: No Symptoms Neurological: Reports: No Symptoms Psychiatric: Reports: No Symptoms - Patient Data Vitals - Most Recent: Last Vital Signs Temp 36.9 C 06/21/21 07:39 Pulse 66 06/21/21 08:26 Resp 18 06/21/21 07:39 BP 107/68 06/21/21 07:39 Pulse Ox 99 06/21/21 09:35 Weight - Most Recent: 84.459 kg I&O - Last 24 hours: Intake & Output 06/20/21 06/21/21 06/21/21 22:59 06:59 14:59 Intake Total 1040 950 Output Total 500 Balance 540 950 Lab Results - Last 24 hrs: Laboratory Results - last 24 hr 06/21/21 06/21/21 Range/Units 06:05 06:05 WBC 13.35 H (4.23-9.07) K/mm3 RBC 4.47 L (4.63-6.08) M/mm3 Hgb 13.6 L (13.7-17.5) gm/dl Hct 41.0 (40.1-51.0) % MCV 91.7 (79.0-92.2) fl MCH 30.4 (25.7-32.2) pg MCHC 33.2 (32.2-35.5) g/dl RDW Std Deviation 43.4 (35.1-43.9) fL Plt Count 503 H D (163-337) K/mm3 MPV 9.6 (9.4-12.3) fl Neut % (Auto) 73.8 H (34.0-67.9) % Lymph % (Auto) 14.2 L (21.8-53.1) % Patrick % (Auto) 10.9 (5.3-12.2) % Eos % (Auto) 0 L (0.8-7.0) Baso % (Auto) 0.2 (0.1-1.2) % Neut # (Auto) 9.85 H (1.78-5.38) K/mm3 Lymph # (Auto) 1.89 (1.32-3.57) K/mm3 Patrick # (Auto) 1.46 H (0.30-0.82) K/mm3 Eos # (Auto) 0.00 L (0.04-0.54) K/mm3 Baso # (Auto) 0.03 (0.01-0.08) K/mm3 Manual Slide Review Abnormal smear Sodium 144 (136-145) mEq/L Potassium 4.0 (3.5-5.1) mEq/L Chloride 108 H (98-107) mEq/L Carbon Dioxide 29 (21-32) mEq/L Anion Gap 11.0 (5-15) BUN 14 (7-18) mg/dL Creatinine 1.0 (0.7-1.3) mg/dL Est Cr Clr Drug Dosing 77.90 mL/min Estimated GFR (MDRD) > 60 (>60) mL/min BUN/Creatinine Ratio 14.0 (14-18) Glucose 119 H (70-99) mg/dL Calcium 8.3 L (8.5-10.1) mg/dL Total Bilirubin 0.3 (0.2-1.0) mg/dL AST 59 H (15-37) U/L ALT 87 H (16-63) U/L Alkaline Phosphatase 104 (46-116) U/L C-Reactive Protein 1.0 (<1.0) mg/dL Total Protein 6.3 L (6.4-8.2) g/dl Albumin 2.7 L (3.4-5.0) g/dl Globulin 3.6 gm/dL Albumin/Globulin Ratio 0.8 L (1-2) Med Orders - Current: Current Medications Dexamethasone (Dexamethasone 4 Mg Tab) 6 mg PO DAILY [facility] Last Admin: 06/21/21 07:58 Dose: 6 mg Documented by: Enoxaparin Sodium (Enoxaparin 40 Mg/0.4 Ml Syringe) 40 mg SUBCUT DAILY [facility] Last Admin: 06/21/21 07:59 Dose: 40 mg Documented by: Ceftriaxone Sodium 2 gm/ (Sodium Chloride) 100 mls @ 200 mls/hr IV Q24H [facility] Last Admin: 06/20/21 21:51 Dose: 200 mls/hr Documented by: Azithromycin 500 mg/ Sodium (Chloride) 250 mls @ 250 mls/hr IV Q24H [facility] Last Admin: 06/20/21 23:28 Dose: 250 mls/hr Documented by: Remdesivir 100 mg/ Sodium (Chloride) 100 mls @ 100 mls/hr IV Q24H [facility] Stop: 06/23/21 23:59 Last Admin: 06/20/21 22:20 Dose: 100 mls/hr Documented by: Discontinued Medications Dexamethasone (Dexamethasone 4 Mg Tab) 6 mg PO NOW [facility] Stop: 06/19/21 19:50 Last Admin: 06/19/21 20:28 Dose: 6 mg Documented by: Enoxaparin Sodium (Enoxaparin 40 Mg/0.4 Ml Syringe) 40 mg SUBCUT Q24H [facility] Last Admin: 06/20/21 07:52 Dose: Not Given Documented by: Remdesivir 200 mg/ Sodium (Chloride) 250 mls @ 250 mls/hr IV ONETIME ONE Stop: 06/19/21 20:46 Last Admin: 06/19/21 23:28 Dose: Not Given Documented by: Azithromycin 500 mg/ Sodium (Chloride) 250 mls @ 250 mls/hr IV Q24H [facility] Last Admin: 06/19/21 21:56 Dose: 250 mls/hr Documented by: Remdesivir 200 mg/ Sodium (Chloride) 250 mls @ 250 mls/hr IV ONETIME ONE Stop: 06/20/21 00:29 Last Admin: 06/20/21 00:06 Dose: 250 mls/hr Documented by: - Exam Quality Assessment: Reports: DVT Prophylaxis. Denies: Supplemental Oxygen General: Reports: Alert, Oriented, Cooperative, No Acute Distress HEENT: Reports: Pupils Equal, Pupils Reactive, EOMI, Mucous Membr. Moist/[place] Neck: Reports: Supple, Trachea Midline Lungs: Reports: Clear to Auscultation, Normal Respiratory Effort Cardiovascular: Reports: Regular Rate, Regular Rhythm GI/Abdominal Exam: Normal Bowel Sounds, Soft, Non-Tender, No Distention (Male) Exam: Deferred Rectal (Males) Exam: Deferred Back Exam: Reports: Normal Inspection, Full Range of Motion Extremities: Normal Inspection, Normal Range of Motion, No Pedal Edema Skin: Reports: Warm, Dry, Intact Neurological: Reports: No New Focal Deficit, Normal Gait, Normal Speech, Normal Tone Psy/Mental Status: Reports: Alert, Normal Affect, Normal Mood
== END 2021-06-21 14:21 | disposition home or self-care (01) | DRG 137 ==
LOC: JD.ED 17:41 → JD.MS 19:51
PROVIDERS: ADMIT Internal Medicine; ATTEND Internal Medicine
DX: U07.1 COVID-19 (principal); J96.01 Acute respiratory failure with hypoxia; J12.82 Pneumonia due to coronavirus disease 2019; Z87.891 Personal history of nicotine dependence
CPT/HCPCS: 36415; 71045; 71045-26; 80053; 80076; 81003; 82728; 83615; 83735; 84484; 85025; 85379; 85610; 85730; 86140; 93005; 93010; 94667; 94668; 94762; 99222; 99239; 99285; 99285-25; J0456; J0696; J1650; J7050; J8540